=== PATIENT | male | born 1960 | race Caucasian/White ===

== ENCOUNTER → 2023-11-12 09:35 | Outpatient (REF) | payer OTHER, SELFPAY | LOC: RAD 09:35 | PROVIDERS: ATTENDING PHYSICIAN Nurse Practitioner Family; FAMILY PHYSICIAN Physician Assistant Medical | DX: D69.6 Thrombocytopenia, unspecified (principal); R79.9 Abnormal finding of blood chemistry, unspecified | CPT/HCPCS: 76705 ==